=== PATIENT | female | born 1945 | race African-American/Black ===

== ENCOUNTER 2018-12-14 12:48 | Inpatient (IN) | payer MEDICARE, OTHER ==
[~2018-12-14] VITALS: Ht 162.6 cm; Wt 72.6 kg
[2018-12-14] MEDS ORDERED: Metoclopramide 10mg/2ml Inj IVP ONE (13:00)
--- NOTE | 2018-12-14 13:25 | NUR ---
ED Nurse Note: Pt NORARanda from [facility] due to complaints of abdominal pain since this morning. No nausea, vomiting or diarrhea. A + O x3. Able to follow verbal commands. SKin warm to touch. Complaining of 6/10 abdominal pain. Non radiating.
[2018-12-14 13:26] VITALS: BP 103/77
--- NOTE | 2018-12-14 13:29 | Emergency Room Report ---
History of Present Illness General Chief Complaint: Abdominal Pain Source: Patient, Family Member, Medical Record Present Illness HPI Patient is a 73-year-old female brought in by EMS after increased abdominal pain.Patient was noted to have prior history of CVA. Patient reportedly had prior history of chest discomfort. She had prior history of atrial fibrillation and is currently on anticoagulation. Patient is currently being treated with digoxin as well as flecainide. Patient was noted to have chronic atrial fibrillation. Patient was sent in from skilled nursing. Patient denies any current abdominal pain or chest pain.Patient was sent in by Dr. Livingston. Allergies: Coded Allergies: No Known Allergies (Unverified , 12/14/18) Patient History Past Medical History: see triage record Reviewed Nursing Documentation: PMH: Agreed; PSxH: Agreed Nursing Documentation-PMH Past Medical History: No History, Except For Hx Cardiac Problems: Yes - a-fib Hx Hypertension: Yes Hx Diabetes: Yes Hx Cerebrovascular Accident: Yes - hemiplegia affecting right nondom side Review of Systems All Other Systems: negative except mentioned in HPI Physical Exam Vital Signs Date Time Temp Pulse Resp B/P (MAP) Pulse Ox O2 Delivery O2 Flow Rate FiO2 12/14/18 12:48 98.4 66 16 107/79 97 Room Air Sp02 EP Interpretation: reviewed, normal General Appearance: normal inspection, well appearing, no apparent distress, alert, Chronically Ill Head: atraumatic ENT: normal ENT inspection, hearing grossly normal, normal voice Neck: normal inspection, full range of motion, supple, no bony tend Respiratory: normal inspection, lungs clear, normal breath sounds, no respiratory distress, no retraction, no wheezing Cardiovascular #1: regular rate, rhythm, no edema Gastrointestinal: normal inspection, normal bowel sounds, non tender, soft, no guarding, no hernia, other - post surgical changes Genitourinary: no CVA tenderness Musculoskeletal: normal inspection, back normal, normal range of motion Neurologic: normal inspection, alert, responsive, motor weakness - generalized weakness Psychiatric: normal inspection, judgement/insight normal, mood/affect normal Skin: normal inspection, normal color, no rash Medical Decision Making Diagnostic Impression: Primary Impression: Chest pain Additional Impressions: A-fib Warfarin-induced coagulopathy ER Course Patient presented for abdominal pain. Differential diagnoses included ischemic bowel, appendicitis, perforated viscus, abdominal aortic aneurysm, inferior myocardial infarction, viral gastroenteritis among others. Because of complexity of patient's case laboratory testing and imaging studies were ordered. EKG interpreted by me showed atrial paced rhythm without acute ST or T wave changes. Patient was noted to have elevated INR. Patient's initial troponin was noted to be negative. CT of abdomen pelvis read by radiology showed mild rectal distention by feces prominent left upper quadrant small bowel loops without evident obstruction. Patient was discussed with Dr. Sosa for further evaluation of chest and abdominal pain. Patient denies any current pain. Labs Test 12/14/18 13:10 12/14/18 14:25 White Blood Count 7.6 K/UL (4.8-10.8) Red Blood Count 5.58 M/UL (4.20-5.40) Hemoglobin 15.9 G/DL (12.0-16.0) Hematocrit 48.2 % (37.0-47.0) Mean Corpuscular Volume 86 FL (80-99) Mean Corpuscular Hemoglobin 28.6 PG (27.0-31.0) Mean Corpuscular Hemoglobin Concent 33.1 G/DL (32.0-36.0) Red Cell Distribution Width 12.4 % (11.6-14.8) Platelet Count 208 K/UL (150-450) Mean Platelet Volume 7.8 FL (6.5-10.1) Neutrophils (%) (Auto) 52.4 % (45.0-75.0) Lymphocytes (%) (Auto) 39.4 % (20.0-45.0) Monocytes (%) (Auto) 6.0 % (1.0-10.0) Eosinophils (%) (Auto) 1.2 % (0.0-3.0) Basophils (%) (Auto) 1.0 % (0.0-2.0) Prothrombin Time 28.5 SEC (9.30-11.50) Prothromb Time International Ratio 2.9 (0.9-1.1) Activated Partial Thromboplast Time 36 SEC (23-33) Sodium Level 136 MMOL/L (136-145) Potassium Level 4.6 MMOL/L (3.5-5.1) Chloride Level 101 MMOL/L (98-107) Carbon Dioxide Level 25 MMOL/L (21-32) Anion Gap 10 mmol/L (5-15) Blood Urea Nitrogen 13 mg/dL (7-18) Creatinine 0.8 MG/DL (0.55-1.30) Estimat Glomerular Filtration Rate mL/min (>60) Glucose Level 217 MG/DL (74-106) Calcium Level 9.2 MG/DL (8.5-10.1) Total Bilirubin 0.4 MG/DL (0.2-1.0) Aspartate Amino Transf (AST/SGOT) 25 U/L (15-37) Alanine Aminotransferase (ALT/SGPT) 41 U/L (12-78) Alkaline Phosphatase 190 U/L (46-116) Troponin I 0.000 ng/mL (0.000-0.056) Total Protein 7.3 G/DL (6.4-8.2) Albumin 3.1 G/DL (3.4-5.0) Globulin 4.2 g/dL Albumin/Globulin Ratio 0.7 (1.0-2.7) Lipase 214 U/L (73-393) Urine Color Yellow Urine Appearance Cloudy Urine pH 5 (4.5-8.0) Urine Specific [place] 1.015 (1.005-1.035) Urine Protein 2+ (NEGATIVE) Urine Glucose (UA) Negative (NEGATIVE) Urine Ketones Negative (NEGATIVE) Urine Blood 3+ (NEGATIVE) Urine Nitrite Positive (NEGATIVE) Urine Bilirubin Negative (NEGATIVE) Urine Urobilinogen 1 MG/DL (0.0-1.0) Urine Leukocyte Esterase 3+ (NEGATIVE) Urine HCG, Qualitative Negative (NEGATIVE) Last Vital Signs Date Time Temp Pulse Resp B/P (MAP) Pulse Ox O2 Delivery O2 Flow Rate FiO2 12/14/18 12:48 98.4 66 16 107/79 97 Room Air Status: unchanged Disposition: ADMITTED INPATIENT Condition: Serious Referrals: NON PHYSICIAN (PCP) Albino Rosado MD Dec 14, 2018 13:29
[2018-12-14 13:41] LABS: EOSINOPHILS % (AUTO) 1.2 % (0.0-3.0); HEMATOCRIT 48.2 % (37.0-47.0); HEMOGLOBIN 15.9 G/DL (12.0-16.0); LYMPHOCYTES % (AUTO) 39.4 % (20.0-45.0); MEAN CORPUSCULAR VOLUME 86 FL (80-99); NEUTROPHILS % (AUTO) 52.4 % (45.0-75.0); PLATELET COUNT 208 K/UL (150-450); RED BLOOD COUNT 5.58 M/UL (4.20-5.40); RED CELL DISTRIBUTION WIDTH 12.4 % (11.6-14.8); WHITE BLOOD COUNT 7.6 K/UL (4.8-10.8)
[2018-12-14 13:51] LABS: ANION GAP 10 mmol/L (5-15); BLOOD UREA NITROGEN 13 mg/dL (7-18); CALCIUM 9.2 MG/DL (8.5-10.1); CARBON DIOXIDE 25 MMOL/L (21-32); CHLORIDE 101 MMOL/L (98-107); CREATININE 0.8 MG/DL (0.55-1.30); INR 2.9 (0.9-1.1); POTASSIUM 4.6 MMOL/L (3.5-5.1); SODIUM 136 MMOL/L (136-145)
[2018-12-14 13:55] LABS: ALANINE AMINOTRANSFERASE 41 U/L (12-78); ALBUMIN 3.1 G/DL (3.4-5.0); ALBUMIN/GLOBULIN RATIO 0.7 (1.0-2.7); ALKALINE PHOSPHATASE 190 U/L (46-116); ASPARTATE AMINO TRANSFERASE 25 U/L (15-37); BILIRUBIN,TOTAL 0.4 MG/DL (0.2-1.0)
--- NOTE | 2018-12-14 14:05 | NUR ---
ED Nurse Note: Pt back from CT.
--- NOTE | 2018-12-14 14:30 | NUR ---
ED Nurse Note: Urine has been collected and sent to lab.
--- NOTE | 2018-12-14 14:31 | Diagnostic Imaging Report ---
Indication: Abdominal pain Technique: Spiral acquisitions obtained through the abdomen and pelvis. No oral contrast utilized, per emergency room physician request No IV contrast utilized, per referring physician request.. Multiplanar reconstructions were generated. Total dose length product 696 mGycm. CTDIvol(s) 13 mGy. Dose reduction achieved using automated exposure control Comparison: None Findings: Lack of enteric contrast limits assessment of the GI tract. There is mild rectal distention by feces. No evidence of diverticulosis or diverticulitis. The appendix is normal. No small bowel distention. Left upper quadrant small bowel loops are mildly prominent in caliber, but no definite transition point demonstrated. No free or loculated intraperitoneal gas. There is trace fluid in the pelvis. The distal esophagus, stomach, duodenum are unremarkable. Lack of IV contrast limits assessment of the solid organs. Gallbladder, bile ducts, liver, pancreas, spleen, adrenals, kidneys are all unremarkable. No retroperitoneal or mesenteric mass or adenopathy. No pelvic mass or adenopathy. A calcification within the uterus probably represents an old degenerated fibroid. There is a right hip arthroplasty prosthesis. This throws off streak artifact which may obscure pathology in the pelvis. The included lung bases demonstrate atelectasis or scarring bilaterally. Pacemaker wires are seen within the right heart. The bones demonstrate degenerative spondylosis changes. Impression: Limited assessment of the GI tract, due to lack of enteric contrast administration Mild rectal distention by feces, could indicate mild rectal fecal impaction. Trace free pelvic fluid. Significance uncertain but not physiologic in a postmenopausal female Mildly prominent left upper quadrant small bowel loops, nonspecific, could indicate mild ileus Other findings as noted, including right hip arthroplasty, old degenerated uterine fibroid, bilateral basilar pulmonary atelectasis or scarring, pacemaker, degenerative spondylosis The CT scanner at [facility] is accredited by the [employer] and the scans are performed using protocols designed to limit radiation exposure to as low as reasonably achievable to attain images of sufficient resolution adequate for diagnostic evaluation.
[2018-12-14 14:47] LABS: APPEARANCE,URINE CLOUDY; BILIRUBIN, URINE NEGATIVE (NEGATIVE); GLUCOSE, URINE (UA) NEGATIVE (NEGATIVE); KETONES,URINE NEGATIVE (NEGATIVE); LEUKOCYTE ESTERASE ,URINE 3+ (NEGATIVE); NITRITE,URINE POSITIVE (NEGATIVE); PH,URINE 5 (4.5-8.0); PROTEIN,URINE 2+ (NEGATIVE); UROBILINOGEN,URINE 1 MG/DL (0.0-1.0)
[2018-12-14 14:48] LABS: COLOR,URINE YELLOW
[2018-12-14 14:59] VITALS: BP 104/54
[2018-12-14] MEDS ORDERED: cefTRIAXone 1 GM in NS 55 ML IVPB ONE (15:15)
--- NOTE | 2018-12-14 15:25 | NUR ---
ED Nurse Note: Daughter Ro
[2018-12-14] MEDS ORDERED: LISINOPRIL20 MG ORAL (15:33)
[2018-12-14] MEDS ORDERED: TRAMADOL HCL50 MG ORAL (15:33)
[2018-12-14] MEDS ORDERED: FLECAINIDE ACE100 MG ORAL (15:33)
[2018-12-14] MEDS ORDERED: CRESTOR20 MG ORAL (15:33)
[2018-12-14] MEDS ORDERED: DIGOXIN250 MCG/1 IV (15:33)
[2018-12-14] MEDS ORDERED: CARDIZEM60 MG ORAL (15:33)
[2018-12-14] MEDS ORDERED: MIRALAX17 G2 ORAL (15:33)
[2018-12-14] MEDS ORDERED: LOPRESSOR5 MG/5 ML IV (15:33)
[2018-12-14] MEDS ORDERED: SENSIPAR30 MG ORAL (15:33)
--- NOTE | 2018-12-14 15:53 | History and Physical ---
History of Present Illness General Date patient seen: Dec 14, 2018 Time patient seen: 15:00 Reason for Hospitalization: Abdominal Pain Present Illness HPI 73 year old woman, fdc resident, comes from [facility] for evaluation of right sided chest pain and lower abdominal pain. She is a patient of Dr. Luis Abdalla. Accompanied by her grandson. 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 She describes right sided chest pain, under the right breast, 7/10, sharp and non-radiating. Resolved spontaneously. Denies associated dyspnea or palpitations She also reports lower abdominal discomfort, moderate in intensity, non radiating. No fever or chills. In ED she had negative first trop, UA with pyuria Past Medical History: CAD, atrial fibrillation s/p PPM, HTN, hyperlipidemia, history of CVA, DM2, dysphagia Social History: No alcohol or tobacco Family History: No premature CAD Allergies: Coded Allergies: No Known Allergies (Unverified , 12/14/18) Medication History Scheduled Cinacalcet* (Sensipar*), 30 MG ORAL DAILY, (Reported) Digoxin* (Digoxin*), 250 MCG IV DAILY, (Reported) Diltiazem Hcl* (Cardizem*), 60 MG ORAL EVERY 6 HOURS, (Reported) Lisinopril (Lisinopril*), 20 MG ORAL DAILY, (Reported) Polyethylene Glycol 3350* (Miralax*), 17 GM ORAL DAILY, (Reported) Rosuvastatin Calcium* (Crestor*), 20 MG ORAL DAILY, (Reported) Scheduled PRN Tramadol Hcl* (Ultram*), 50 MG ORAL Q6H PRN for For Pain, (Reported) Miscellaneous Medications Flecainide Acetate (Flecainide Acetate*), 100 MG ORAL, (Reported) Metoprolol Tartrate* (Lopressor*), 5 MG IV, (Reported) Patient History Healthcare decision maker Resuscitation status Advanced Directive on File Review of Systems Constitutional: Denies: chills, fever Eye: Denies: eye pain Respiratory: Denies: cough, shortness of breath Cardiovascular: Reports: chest pain; Denies: edema, palpitations Gastrointestinal: Reports: abdominal pain; Denies: constipation, diarrhea Musculoskeletal: Denies: back pain Neurological: Denies: headache Physical Exam General Appearance: no apparent distress, alert HEENT: normocephalic, atraumatic, anicteric Neck: normal alignment, supple, abnormal alignment Respiratory/Chest: chest wall non-tender, lungs clear, normal breath sounds Cardiovascular/Chest: normal peripheral pulses, normal rate Abdomen: normal bowel sounds, non tender Neurologic: senior director marketing II-XII grossly normal, alert, oriented x 3, responsive Last 24 Hour Vital Signs Date Time Temp Pulse Resp B/P (MAP) Pulse Ox O2 Delivery O2 Flow Rate FiO2 12/14/18 14:59 98.4 60 21 104/54 100 Room Air 100 12/14/18 13:26 60 19 Room Air 100 12/14/18 13:26 98.4 60 19 103/77 100 Room Air 12/14/18 12:48 98.4 66 16 107/79 97 Room Air Laboratory Tests Test 12/14/18 13:10 12/14/18 14:25 White Blood Count 7.6 K/UL (4.8-10.8) Red Blood Count 5.58 M/UL (4.20-5.40) H Hemoglobin 15.9 G/DL (12.0-16.0) Hematocrit 48.2 % (37.0-47.0) H Mean Corpuscular Volume 86 FL (80-99) Mean Corpuscular Hemoglobin 28.6 PG (27.0-31.0) Mean Corpuscular Hemoglobin Concent 33.1 G/DL (32.0-36.0) Red Cell Distribution Width 12.4 % (11.6-14.8) Platelet Count 208 K/UL (150-450) Mean Platelet Volume 7.8 FL (6.5-10.1) Neutrophils (%) (Auto) 52.4 % (45.0-75.0) Lymphocytes (%) (Auto) 39.4 % (20.0-45.0) Monocytes (%) (Auto) 6.0 % (1.0-10.0) Eosinophils (%) (Auto) 1.2 % (0.0-3.0) Basophils (%) (Auto) 1.0 % (0.0-2.0) Prothrombin Time 28.5 SEC (9.30-11.50) H Prothromb Time International Ratio 2.9 (0.9-1.1) H Activated Partial Thromboplast Time 36 SEC (23-33) H Sodium Level 136 MMOL/L (136-145) Potassium Level 4.6 MMOL/L (3.5-5.1) Chloride Level 101 MMOL/L (98-107) Carbon Dioxide Level 25 MMOL/L (21-32) Anion Gap 10 mmol/L (5-15) Blood Urea Nitrogen 13 mg/dL (7-18) Creatinine 0.8 MG/DL (0.55-1.30) Estimat Glomerular Filtration Rate mL/min (>60) Glucose Level 217 MG/DL (74-106) H Calcium Level 9.2 MG/DL (8.5-10.1) Total Bilirubin 0.4 MG/DL (0.2-1.0) Aspartate Amino Transf (AST/SGOT) 25 U/L (15-37) Alanine Aminotransferase (ALT/SGPT) 41 U/L (12-78) Alkaline Phosphatase 190 U/L (46-116) H Troponin I 0.000 ng/mL (0.000-0.056) Total Protein 7.3 G/DL (6.4-8.2) Albumin 3.1 G/DL (3.4-5.0) L Globulin 4.2 g/dL Albumin/Globulin Ratio 0.7 (1.0-2.7) L Lipase 214 U/L (73-393) Urine Color Yellow Urine Appearance Cloudy Urine pH 5 (4.5-8.0) Urine Specific [place] 1.015 (1.005-1.035) Urine Protein 2+ (NEGATIVE) H Urine Glucose (UA) Negative (NEGATIVE) Urine Ketones Negative (NEGATIVE) Urine Blood 3+ (NEGATIVE) H Urine Nitrite Positive (NEGATIVE) H Urine Bilirubin Negative (NEGATIVE) Urine Urobilinogen 1 MG/DL (0.0-1.0) H Urine Leukocyte Esterase 3+ (NEGATIVE) H Urine RBC 10-15 /HPF (0 - 2) H Urine WBC 40-60 /HPF (0 - 2) H Urine Squamous Epithelial Cells Occasional /LPF Urine Bacteria Many /HPF (NONE) H Urine HCG, Qualitative Negative (NEGATIVE) Height (Feet): 5 Height (Inches): 4.00 Weight (Pounds): 160 Medications Current Medications Medications (Trade) Dose Ordered Sig/Ellie Route PRN Reason Start Time Stop Time Status Last Admin Dose Admin Acetaminophen (Tylenol) 650 mg Q4H PRN ORAL Mild Pain (Pain Scale 1-3) 2/13/19 15:30 01/13/19 15:29 Aspirin (ASA) 81 mg DAILY ORAL 12/15/18 09:00 01/14/19 08:59 Ceftriaxone Sodium 1 gm/ Sodium Chloride 55 ml @ 110 mls/hr ONCE ONCE IVPB 12/14/18 15:15 12/14/18 15:44 12/14/18 15:14 Ceftriaxone Sodium 1 gm/ Sodium Chloride 55 ml @ 110 mls/hr Q24HRS IVPB 12/15/18 15:30 12/22/18 15:29 UNV Dextrose (Dextrose 50%) 25 ml Q30M PRN IV Hypoglycemia 12/14/18 15:30 01/13/19 15:29 Dextrose (Dextrose 50%) 50 ml Q30M PRN IV Hypoglycemia 12/14/18 15:30 01/13/19 15:29 Digoxin (Lanoxin) 0.25 mg DAILY ORAL 12/15/18 09:00 01/14/19 08:59 UNV Diltiazem HCl (Cardizem) 90 mg TID ORAL 12/14/18 18:00 01/13/19 17:59 Docusate Sodium (Colace) 100 mg EVERY 12 HOURS ORAL 12/14/18 21:00 01/13/19 20:59 Flecainide Acetate (Tambocor) 50 mg DAILY ORAL 12/15/18 09:00 01/14/19 08:59 UNV Insulin Aspart (NovoLOG) BEFORE MEALS AND HS SUBQ 12/14/18 16:30 01/13/19 16:29 UNV Metoprolol Tartrate (Lopressor) 100 mg EVERY 12 HOURS ORAL 12/14/18 21:00 01/13/19 20:59 Ondansetron HCl (Zofran) 4 mg Q6H PRN IVP Nausea & Vomiting 12/14/18 15:30 01/13/19 15:29 Assessment/Plan Problem List: (1) UTI (urinary tract infection) ICD Codes: N39.0 - Urinary tract infection, site not specified SNOMED: 04093217 (2) Chest pain ICD Codes: R07.9 - Chest pain, unspecified SNOMED: 48081213 (3) A-fib ICD Codes: I48.91 - Unspecified atrial fibrillation SNOMED: 07354005 Assessment/Plan #Right sided chest pain #history of CAD #atrial fibrillation, paced rhythm on EKG #history of HTN, dyslipidemia -admit to telemetry unit -check serial cardiac enzymes -continue ASA,statin, B-cinthia -continue digoxin, flecainide and diltiazem -Cardiology consulted #Abdominal pain #Pyuria #Suspected UTI -no sepsis at this time -start ceftriaxone -follow up urine culture #Type 2 DM -lispro SS -diabetic diet #history of CVA #Dysphagia #paraplegia -on ASA and statin -continue supportive care -dysphagia diet -skin check -pressure ulcer protocol VTE PPx on warfarin DNR I spent 70 minutes on this patient's case, and 35 minutes was dedicated to counseling and/or care coordination. Darci Flowers MD Dec 14, 2018 15:53
[2018-12-14] MEDS ORDERED: traMADol 50mg tab ORAL PRN (16:00)
[2018-12-14 17:22] VITALS: BP 116/62
--- NOTE | 2018-12-14 17:35 | NUR ---
ED Nurse Note: Gave telephone report to ABHAY Melchor. Awaiting for admission packet.
--- NOTE | 2018-12-14 18:01 | NUR ---
ED Nurse Note: Pt transferred up to tele unit. No acute distres noted. Left ER w/ al belongings.
--- NOTE | 2018-12-14 18:10 | NUR ---
NURSE NOTES: Report received from ABHAY Titus. Patient came in to the floor via gurney from ER. Patient in RA, denies any SOB or pain. Patient AOx3. jute bag clipper applied. Belongings checked signed and filed. IV patent, SL. Patient oriented to room and hospital rules. Bed on lowest position, brakes engaged, side rails upx2, alarm on. Call light within easy reach.
[2018-12-14] MEDS: dilTIAZem HCl 90mg tab ORAL SCH (18:37)
[2018-12-14] MEDS ORDERED: METOPROLOL TAR100 M1 ORAL (19:15)
[2018-12-14] MEDS ORDERED: DIGOXIN250 MCG ORAL (19:15)
[2018-12-14] MEDS ORDERED: MULTIVITAMINS1 EAC8 ORAL (19:18)
[2018-12-14] MEDS ORDERED: ASPIRIN81 MG ORAL (19:18)
[2018-12-14] MEDS ORDERED: VITAMIN D350000 UNIT PO (19:18)
[2018-12-14] MEDS ORDERED: ARTIFICIAL TEAR15 ML BOTH EYES (19:24)
[2018-12-14] MEDS ORDERED: LD2JL30 TOPIC (19:24)
[2018-12-14] MEDS ORDERED: LANTUS SOL100 UNIT/1 SUBQ (19:28)
[2018-12-14] MEDS ORDERED: HUMALOG KW200 UNIT/1 SQ (19:28)
--- NOTE | 2018-12-14 19:30 | NUR ---
NURSE NOTES: Received report from Freedom Diallo RN. Pt was admitted to at 1820. No DVT prophylaxis order yet. Called left message to Dr. Sosa, awaiting call back. Pt is resting in the bed w/o distress in RA, no pain at all at this time. Safety measures are applied with bed alarm on, bed in lowest position, side rails up x2, and breaks are engaged. Call light and side table are within reach. A-paced 60 bpm in the monitor. L. HANNAH 22G SL, asymptomatic. Family are at the bedside. Will follow plans of care. Addendum: 12/15/18 at 0000 by DEVORAH GUILLAUME RN called and ordered SCDs for DVT proplylaxis. Informed that Pt has hx of a-fib and Chest pain. Will carry out the order.
--- NOTE | 2018-12-14 19:42 | NUR ---
CASE MANAGEMENT: REVIEW 73/F BIBA FROM [facility] CC: ABD PAIN SI: CHEST PAIN . A-FIB T 97.5 HR 66 RR 19 BP 104/54 SAT 94% ROOM AIR TROPONIN I 0.000 IS: NS IVF BOLUS X1 REGLAN IV X1 CEFTRIAXONE IV X1 PATIENT ADMITTED TO TELEMETRY UNIT 12/14/2018 DCP: PATIENT IS FROM [facility]
[2018-12-14 20:00] VITALS: BP 120/75
[2018-12-14] MEDS: Docusate 100mg cap ORAL SCH (21:03)
[2018-12-14] MEDS: NovoLOG Insulin Flexpen SUBQ SCH (21:04)
--- NOTE | 2018-12-14 22:54 | NUR ---
NURSE NOTES: Called pharmacy for Insulin pen 3 times at 2030, at 2130, at 2220. Novolog is ready now in the med room. Will be administer it now. Addendum: 12/14/18 at 2257 by DEVORAH GUILLAUME RN Wrong patient.
[2018-12-15] VITALS: BP 149/87
--- NOTE | 2018-12-15 02:00 | NUR ---
NURSE NOTES: Plt was wet and had BM, and cleaned, dried. Pt was repositioned. pt tolerated well.
[2018-12-15 04:00] VITALS: BP 138/87
[2018-12-15] MEDS: NovoLOG Insulin Flexpen SUBQ SCH ×4 (06:46→21:00)
--- NOTE | 2018-12-15 07:00 | NUR ---
HAND-OFF: Report given to Neo Gomes RN.Stable condition.
[2018-12-15 08:00] VITALS: BP 128/68
--- NOTE | 2018-12-15 08:09 | NUR ---
NURSE NOTES: Pt in bed in low position, call light at bedside HoB in high fowlers, IV site patent and intact, pt Ox3 with some resistance to care but yet cooperative, follows commands, IV LT EJ patent and intact, pt bed bound, pt makes needs known, no s/s of distress or sob noted, pt denies pain. pt eating breakfast.
--- NOTE | 2018-12-15 08:37 | NUR ---
NURSE NOTES: Md Pleitez wants to down grade the pt to medsurg
[2018-12-15 08:53] LABS: BASOPHILS % (AUTO) 1.2 % (0.0-2.0); EOSINOPHILS % (AUTO) 1.2 % (0.0-3.0); HEMATOCRIT 41.5 % (37.0-47.0); HEMOGLOBIN 13.4 G/DL (12.0-16.0); LYMPHOCYTES % (AUTO) 38.7 % (20.0-45.0); MEAN CORPUSCULAR VOLUME 87 FL (80-99); MONOCYTES % (AUTO) 5.5 % (1.0-10.0); NEUTROPHILS % (AUTO) 53.5 % (45.0-75.0); PLATELET COUNT 166 K/UL (150-450); RED BLOOD COUNT 4.76 M/UL (4.20-5.40); RED CELL DISTRIBUTION WIDTH 12.4 % (11.6-14.8); WHITE BLOOD COUNT 7.7 K/UL (4.8-10.8)
[2018-12-15 08:59] LABS: ANION GAP 8 mmol/L (5-15); BLOOD UREA NITROGEN 13 mg/dL (7-18); CALCIUM 8.9 MG/DL (8.5-10.1); CARBON DIOXIDE 28 MMOL/L (21-32); CHLORIDE 101 MMOL/L (98-107); CREATININE 0.8 MG/DL (0.55-1.30); SODIUM 137 MMOL/L (136-145)
[2018-12-15] MEDS: dilTIAZem HCl 90mg tab ORAL SCH ×3 (09:30→18:44)
[2018-12-15] MEDS: Lisinopril 20mg tab ORAL SCH (09:30)
[2018-12-15] MEDS: Aspirin Baby 81mg ORAL SCH (09:31)
[2018-12-15] MEDS: Docusate 100mg cap ORAL SCH ×2 (09:31→21:00)
[2018-12-15] MEDS: Digoxin 0.125mg tab ORAL SCH (09:34)
[2018-12-15 12:00] VITALS: BP 139/87
[2018-12-15] MEDS ORDERED: Lexiscan 0.4mg/5ml syringe IV PRN (12:15)
--- NOTE | 2018-12-15 12:16 | Consultation ---
History of Present Illness General Date patient seen: Dec 15, 2018 Time patient seen: 12:11 Chief Complaint: Abdominal Pain Present Illness HPI 73 year old woman, [facility] resident, comes from [facility] for evaluation of right sided chest pain and lower abdominal pain. She is a patient of Dr. Luis Abdalla. Accompanied by her grandson. 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 She describes right sided chest pain, under the right breast, 7/10, sharp and non- radiating. Resolved spontaneously. Denies associated dyspnea or palpitations She also reports lower abdominal discomfort, moderate in intensity, non radiating. No fever or chills. In ED she had negative first trop, UA with pyuria. Past Medical History: CAD, atrial fibrillation s/p PPM, HTN, hyperlipidemia, history of CVA, DM2, dysphagia Allergies: Coded Allergies: No Known Allergies (Unverified , 12/14/18) Medication History Scheduled Aspirin* (Aspirin*), 81 MG ORAL DAILY, (Reported) Cholecalciferol (Vitamin D3) (Vitamin D3), 50,000 UNIT PO ONCE A WEEK, (Reported ) Cinacalcet* (Sensipar*), 30 MG ORAL DAILY, (Reported) Dextran 70/Hypromellose (Artificial Tears Eye Drops*), 1 DROP BOTH EYES BID, ( Reported) Digoxin* (Digoxin*), 0.25 MG ORAL DAILY, (Reported) Diltiazem Hcl* (Cardizem*), 90 MG ORAL TID, (Reported) Flecainide Acetate (Flecainide Acetate*), 50 MG ORAL DAILY, (Reported) Insulin Glargine (Lantus), 12 UNITS SUBQ BEDTIME, (Reported) Insulin Lispro (Humalog Kwikpen), 4 UNIT SQ AC, (Reported) Lidocaine HCL 2% Jelly* (Lidocaine Jelly 2%*), 5 % TOPIC DAILY, (Reported) Metoprolol Tartrate* (Metoprolol Tartrate*), 100 MG ORAL BID, (Reported) Multivitamin With Minerals (Multivitamins With Minerals*), 1 TAB ORAL DAILY, ( Reported) Polyethylene Glycol 3350* (Miralax*), 17 GM ORAL DAILY, (Reported) Rosuvastatin Calcium* (Crestor*), 20 MG ORAL QHS, (Reported) Tramadol Hcl* (Ultram*), 50 MG ORAL Q12HR, (Reported) Scheduled PRN Lisinopril (Lisinopril*), 20 MG ORAL DAILY PRN for For High Blood Pressure, ( Reported) Discontinued Medications Digoxin* (Digoxin*), 250 MCG IV DAILY, (Reported) Discontinued Reason: Prescription changed Metoprolol Tartrate* (Lopressor*), 5 MG IV, (Reported) Discontinued Reason: Prescription changed Patient History Healthcare decision maker Resuscitation status Do Not Resuscitate Advanced Directive on File Review of Systems Constitutional: Reports: no symptoms Eye: Reports: no symptoms ENT: Reports: no symptoms Respiratory: Reports: no symptoms Cardiovascular: Reports: chest pain, palpitations Gastrointestinal: Reports: no symptoms Genitourinary: Reports: no symptoms Musculoskeletal: Reports: no symptoms Skin: Reports: no symptoms Psychiatric: Reports: no symptoms Neurological: Reports: no symptoms Endocrine: Reports: no symptoms Hematologic/Lymphatic: Reports: no symptoms Physical Exam General Appearance: no apparent distress, alert Lines, tubes and drains: peripheral, central line HEENT: normocephalic, atraumatic, anicteric, mucous membranes moist, PERRL Neck: non-tender, normal alignment, supple Respiratory/Chest: lungs clear Cardiovascular/Chest: normal peripheral pulses, normal rate, regularly irregular Abdomen: normal bowel sounds, non tender Skin Exam: normal pigmentation, warm/dry Neurologic: fishing hand II-XII grossly normal, no motor/sensory deficits Last 24 Hour Vital Signs Date Time Temp Pulse Resp B/P (MAP) Pulse Ox O2 Delivery O2 Flow Rate FiO2 12/15/18 09:34 62 12/15/18 09:30 128/68 12/15/18 09:30 60 128/68 12/15/18 09:30 60 128/68 12/15/18 08:34 Room Air 12/15/18 08:00 97.3 0 20 128/68 (88) 99 12/15/18 07:49 60 12/15/18 04:00 97.7 60 18 138/87 (104) 97 12/15/18 03:20 60 12/15/18 00:00 97.2 60 18 149/87 (107) 98 12/14/18 23:35 60 12/14/18 21:10 60 120/75 12/14/18 21:00 Room Air 12/14/18 21:00 Room Air 12/14/18 20:00 60 12/14/18 20:00 97.7 60 18 120/75 (90) 95 12/14/18 18:37 62 117/69 12/14/18 17:59 97.5 60 18 110/60 96 Room Air 12/14/18 17:22 98.2 60 12 116/62 94 Room Air 100 12/14/18 14:59 98.4 60 21 104/54 100 Room Air 100 12/14/18 13:26 60 19 Room Air 100 12/14/18 13:26 98.4 60 19 103/77 100 Room Air 12/14/18 12:48 98.4 66 16 107/79 97 Room Air Intake and Output 12/14/18 12/15/18 19:00 07:00 Intake Total 550 ml Balance 550 ml Intake IV Total 550 ml # Voids 1 2 # Bowel Movements 1 Laboratory Tests Test 12/14/18 13:10 12/14/18 14:25 12/14/18 21:15 12/15/18 08:35 White Blood Count 7.6 K/UL (4.8-10.8) 7.7 K/UL (4.8-10.8) Red Blood Count 5.58 M/UL (4.20-5.40) H 4.76 M/UL (4.20-5.40) Hemoglobin 15.9 G/DL (12.0-16.0) 13.4 G/DL (12.0-16.0) Hematocrit 48.2 % (37.0-47.0) H 41.5 % (37.0-47.0) Mean Corpuscular Volume 86 FL (80-99) 87 FL (80-99) Mean Corpuscular Hemoglobin 28.6 PG (27.0-31.0) 28.1 PG (27.0-31.0) Mean Corpuscular Hemoglobin Concent 33.1 G/DL (32.0-36.0) 32.2 G/DL (32.0-36.0) Red Cell Distribution Width 12.4 % (11.6-14.8) 12.4 % (11.6-14.8) Platelet Count 208 K/UL (150-450) 166 K/UL (150-450) Mean Platelet Volume 7.8 FL (6.5-10.1) 7.9 FL (6.5-10.1) Neutrophils (%) (Auto) 52.4 % (45.0-75.0) 53.5 % (45.0-75.0) Lymphocytes (%) (Auto) 39.4 % (20.0-45.0) 38.7 % (20.0-45.0) Monocytes (%) (Auto) 6.0 % (1.0-10.0) 5.5 % (1.0-10.0) Eosinophils (%) (Auto) 1.2 % (0.0-3.0) 1.2 % (0.0-3.0) Basophils (%) (Auto) 1.0 % (0.0-2.0) 1.2 % (0.0-2.0) Prothrombin Time 28.5 SEC (9.30-11.50) H 10.6 SEC (9.30-11.50) Prothromb Time International Ratio 2.9 (0.9-1.1) H 1.0 (0.9-1.1) Activated Partial Thromboplast Time 36 SEC (23-33) H Sodium Level 136 MMOL/L (136-145) 137 MMOL/L (136-145) Potassium Level 4.6 MMOL/L (3.5-5.1) 4.0 MMOL/L (3.5-5.1) Chloride Level 101 MMOL/L (98-107) 101 MMOL/L (98-107) Carbon Dioxide Level 25 MMOL/L (21-32) 28 MMOL/L (21-32) Anion Gap 10 mmol/L (5-15) 8 mmol/L (5-15) Blood Urea Nitrogen 13 mg/dL (7-18) 13 mg/dL (7-18) Creatinine 0.8 MG/DL (0.55-1.30) 0.8 MG/DL (0.55-1.30) Estimat Glomerular Filtration Rate mL/min (>60) mL/min (>60) Glucose Level 217 MG/DL (74-106) H 327 MG/DL (74-106) #H Calcium Level 9.2 MG/DL (8.5-10.1) 8.9 MG/DL (8.5-10.1) Total Bilirubin 0.4 MG/DL (0.2-1.0) Aspartate Amino Transf (AST/SGOT) 25 U/L (15-37) Alanine Aminotransferase (ALT/SGPT) 41 U/L (12-78) Alkaline Phosphatase 190 U/L (46-116) H Troponin I 0.000 ng/mL (0.000-0.056) 0.000 ng/mL (0.000-0.056) Total Protein 7.3 G/DL (6.4-8.2) Albumin 3.1 G/DL (3.4-5.0) L Globulin 4.2 g/dL Albumin/Globulin Ratio 0.7 (1.0-2.7) L Lipase 214 U/L (73-393) Urine Color Yellow Urine Appearance Cloudy Urine pH 5 (4.5-8.0) Urine Specific Kyle 1.015 (1.005-1.035) Urine Protein 2+ (NEGATIVE) H Urine Glucose (UA) Negative (NEGATIVE) Urine Ketones Negative (NEGATIVE) Urine Blood 3+ (NEGATIVE) H Urine Nitrite Positive (NEGATIVE) H Urine Bilirubin Negative (NEGATIVE) Urine Urobilinogen 1 MG/DL (0.0-1.0) H Urine Leukocyte Esterase 3+ (NEGATIVE) H Urine RBC 10-15 /HPF (0 - 2) H Urine WBC 40-60 /HPF (0 - 2) H Urine Squamous Epithelial Cells Occasional /LPF Urine Bacteria Many /HPF (NONE) H Urine HCG, Qualitative Negative (NEGATIVE) Height (Feet): 5 Height (Inches): 4.00 Weight (Pounds): 160 Medications Current Medications Medications (Trade) Dose Ordered Sig/Ellie Route PRN Reason Start Time Stop Time Status Last Admin Dose Admin Acetaminophen (Tylenol) 650 mg Q4H PRN ORAL Mild Pain (Pain Scale 1-3) 12/14/18 15:30 01/13/19 15:29 Aspirin (ASA) 81 mg DAILY ORAL 12/15/18 09:00 01/14/19 08:59 12/15/18 09:31 Atorvastatin Calcium (Lipitor) 10 mg DAILY ORAL 12/15/18 09:00 01/14/19 08:59 12/15/18 09:31 Ceftriaxone Sodium 1 gm/ Sodium Chloride 55 ml @ 110 mls/hr Q24HRS IVPB 12/15/18 15:00 12/22/18 14:59 Dextrose (Dextrose 50%) 25 ml Q30M PRN IV Hypoglycemia 12/14/18 15:30 01/13/19 15:29 Dextrose (Dextrose 50%) 50 ml Q30M PRN IV Hypoglycemia 12/14/18 15:30 01/13/19 15:29 Digoxin (Lanoxin) 0.25 mg DAILY ORAL 12/15/18 09:00 01/14/19 08:59 12/15/18 09:34 Diltiazem HCl (Cardizem) 90 mg TID ORAL 12/14/18 18:00 01/13/19 17:59 12/14/18 18:37 Docusate Sodium (Colace) 100 mg EVERY 12 HOURS ORAL 12/14/18 21:00 01/13/19 20:59 12/15/18 09:31 Flecainide Acetate (Tambocor) 50 mg DAILY ORAL 12/15/18 09:00 01/14/19 08:59 12/15/18 09:31 Insulin Aspart (NovoLOG) BEFORE MEALS AND HS SUBQ 12/14/18 21:00 01/13/19 20:59 12/15/18 11:47 Lisinopril (Prinivil) 20 mg DAILY ORAL 12/15/18 09:00 01/14/19 08:59 12/15/18 09:30 Metoprolol Tartrate (Lopressor) 100 mg EVERY 12 HOURS ORAL 12/14/18 21:00 01/13/19 20:59 12/14/18 21:10 Ondansetron HCl (Zofran) 4 mg Q6H PRN IVP Nausea & Vomiting 12/14/18 15:30 01/13/19 15:29 Tramadol HCl (Ultram) 50 mg Q6H PRN ORAL For Pain 12/14/18 16:00 12/21/18 15:59 Assessment/Plan Status: stable Assessment/Plan Assessment/Plan Problem List: (1) UTI (urinary tract infection) (2) Chest pain (3) A-fib (4) HTN (5) HLD (6) CAD -Aspirin -Statin -nitro -Serial EKG/Troponin -Cardiolite Stress test in AM -Continue Digoxin/felcainide/cardizem for AFIB -Empiric Rocephin -Lisinopril for hypertension Julio Donnelly MD Dec 15, 2018 12:16
--- NOTE | 2018-12-15 12:39 | NUR ---
NURSE NOTES: per dr vigil keep patient in tele.
--- NOTE | 2018-12-15 14:54 | General Progress Note ---
Assessment/Plan Problem List: (1) UTI (urinary tract infection) ICD Codes: N39.0 - Urinary tract infection, site not specified SNOMED: 46355127 (2) Chest pain ICD Codes: R07.9 - Chest pain, unspecified SNOMED: 78452661 (3) A-fib ICD Codes: I48.91 - Unspecified atrial fibrillation SNOMED: 61603180 Assessment/Plan #Right sided chest pain #history of CAD #atrial fibrillation, paced rhythm on EKG #history of HTN, dyslipidemia -continue telemetry monitoring -serial trops negative -continue ASA,statin, B-cinthia -continue digoxin, flecainide and diltiazem -Cardiology consult appreciated, stress testing ordered #Abdominal pain #Pyuria #GNR UTI -no sepsis at this time -continue ceftriaxone -follow up final urine culture #Type 2 DM -lispro SS -diabetic diet #history of CVA #Dysphagia #paraplegia -on ASA and statin -continue supportive care -dysphagia diet -skin check -pressure ulcer protocol VTE PPx DNR Subjective Date patient seen: Dec 15, 2018 Time patient seen: 11:35 ROS Limited/Unobtainable: No Constitutional: Denies: chills, fever HEENT: Denies: blurred vision Cardiovascular: Denies: chest pain, edema Respiratory: Denies: cough, orthopnea, shortness of breath, SOB at rest Gastrointestinal/Abdominal: Denies: abdomen distended, abdominal pain Allergies: Coded Allergies: No Known Allergies (Unverified , 12/14/18) Subjective Medicine follow up for chest pain and UTI. She feels better today. No further pain overnight. Objective Last 24 Hour Vital Signs Date Time Temp Pulse Resp B/P (MAP) Pulse Ox O2 Delivery O2 Flow Rate FiO2 12/15/18 13:00 60 139/87 12/15/18 12:00 97.2 60 18 139/87 (104) 99 12/15/18 09:34 62 12/15/18 09:30 128/68 12/15/18 09:30 60 128/68 12/15/18 09:30 60 128/68 12/15/18 08:34 Room Air 12/15/18 08:00 97.3 0 20 128/68 (88) 99 12/15/18 07:49 60 12/15/18 04:00 97.7 60 18 138/87 (104) 97 2/14/19 03:20 60 12/15/18 00:00 97.2 60 18 149/87 (107) 98 12/14/18 23:35 60 12/14/18 21:10 60 120/75 12/14/18 21:00 Room Air 12/14/18 21:00 Room Air 12/14/18 20:00 60 12/14/18 20:00 97.7 60 18 120/75 (90) 95 12/14/18 18:37 62 117/69 12/14/18 17:59 97.5 60 18 110/60 96 Room Air 12/14/18 17:22 98.2 60 12 116/62 94 Room Air 100 12/14/18 14:59 98.4 60 21 104/54 100 Room Air 100 Intake and Output 12/14/18 12/15/18 19:00 07:00 Intake Total 550 ml Balance 550 ml Intake IV Total 550 ml # Voids 1 2 # Bowel Movements 1 Laboratory Tests 12/14/18 21:15: Troponin I 0.000 12/15/18 08:35: White Blood Count 7.7, Red Blood Count 4.76, Hemoglobin 13.4, Hematocrit 41.5, Mean Corpuscular Volume 87, Mean Corpuscular Hemoglobin 28.1, Mean Corpuscular Hemoglobin Concent 32.2, Red Cell Distribution Width 12.4, Platelet Count 166, Mean Platelet Volume 7.9, Neutrophils (%) (Auto) 53.5, Lymphocytes (%) (Auto) 38.7, Monocytes (%) (Auto) 5.5, Eosinophils (%) (Auto) 1.2, Basophils (%) (Auto ) 1.2, Prothrombin Time 10.6, Prothromb Time International Ratio 1.0, Sodium Level 137, Potassium Level 4.0, Chloride Level 101, Carbon Dioxide Level 28, Anion Gap 8, Blood Urea Nitrogen 13, Creatinine 0.8, Estimat Glomerular Filtration Rate , Glucose Level 327#H, Calcium Level 8.9 Height (Feet): 5 Height (Inches): 4.00 Weight (Pounds): 160 General Appearance: no apparent distress, alert Neck: non-tender, normal alignment Cardiovascular: normal peripheral pulses, normal rate, regular rhythm Respiratory/Chest: chest wall non-tender, lungs clear, normal breath sounds, no respiratory distress Abdomen: normal bowel sounds, non tender, soft, no organomegaly, no mass Extremities: non-tender Neurologic: under sheriff II-XII grossly normal, no motor/sensory deficits Darci Flowers MD Dec 15, 2018 14:54
[2018-12-15] MEDS: cefTRIAXone 1 GM in NS 55 ML IVPB SCH (15:55)
[2018-12-15 16:00] VITALS: BP 166/98
--- NOTE | 2018-12-15 19:00 | NUR ---
NURSE NOTES: Received report from Neo Gomes RN. Pt is sleeping in the bed w/o distress in RA, easily arousable by voice stimuli. Safety measures are applied w/ bed alarm on, bed in lowest position w/ side rails up x2, and breaks are engaged. Call light and side table are w/in reach. SR in the monitor. Will follow plans of care.
--- NOTE | 2018-12-15 19:29 | NUR ---
HAND-OFF: Report given to Emily Tyler Rn .
[2018-12-15 20:00] VITALS: BP 135/77
[2018-12-16] VITALS: BP 117/86
[2018-12-16 04:00] VITALS: BP 132/75
[2018-12-16] MEDS: NovoLOG Insulin Flexpen SUBQ SCH ×4 (06:23→21:51)
--- NOTE | 2018-12-16 07:30 | NUR ---
HAND-OFF: Report given to Neo Gomes RN. Stable condition.
--- NOTE | 2018-12-16 07:35 | NUR ---
NURSE NOTES: Pt in bed in low position, bed alarm on, call light at bedside, pt can be resistive to care, pt Ox3 makes needs known, pt NPO due to cardiac stress test, IV EJ left 22 locked, pt HOB in fowlers, pt resting in bed with eyes closed and breathing appears to be sleeping, no s/s of distress or sob noted. Order still in for transfer to [facility] after stress test.
[2018-12-16 08:00] VITALS: BP 126/75
[2018-12-16] MEDS: Digoxin 0.125mg tab ORAL SCH (09:00)
[2018-12-16] MEDS: dilTIAZem HCl 90mg tab ORAL SCH ×3 (09:00→18:00)
--- NOTE | 2018-12-16 09:05 | Cardiology Progress Note ---
Assessment/Plan Status: stable Assessment/Plan Assessment/Plan Status: stable Assessment/Plan Assessment/Plan Problem List: (1) UTI (urinary tract infection) (2) Chest pain (3) A-fib (4) HTN (5) HLD (6) CAD -Aspirin -Statin -nitro -Serial EKG/Troponin -Cardiolite Stress test in AM -Continue Digoxin/felcainide/cardizem for AFIB -Empiric Rocephin -Lisinopril for hypertension Subjective Cardiovascular: Reports: no symptoms Respiratory: Reports: no symptoms Gastrointestinal/Abdominal: Reports: no symptoms Genitourinary: Reports: no symptoms Subjective No acute events,no chest pain currently, for stress test this Am Objective Last 24 Hour Vital Signs Date Time Temp Pulse Resp B/P (MAP) Pulse Ox O2 Delivery O2 Flow Rate FiO2 12/16/18 08:06 Room Air 12/16/18 08:00 97.9 60 18 126/75 (92) 97 12/16/18 04:03 60 12/16/18 04:00 97.7 61 18 132/75 (94) 97 12/16/18 00:00 97.7 60 20 117/86 (96) 97 12/15/18 23:45 60 12/15/18 21:00 60 135/77 12/15/18 21:00 Room Air 12/15/18 20:00 97.2 60 18 135/77 (96) 99 12/15/18 19:02 60 12/15/18 18:44 61 166/98 12/15/18 16:00 98.2 61 18 166/98 (120) 98 12/15/18 15:34 60 12/15/18 13:00 60 139/87 12/15/18 12:00 97.2 60 18 139/87 (104) 99 12/15/18 09:34 62 12/15/18 09:30 128/68 12/15/18 09:30 60 128/68 12/15/18 09:30 60 128/68 General Appearance: no apparent distress, alert EENT: PERRL/EOMI, normal ENT inspection, TMs normal, pharynx normal Neck: non-tender, normal alignment, supple, normal inspection, no JVD Rhythm: NSR Cardiovascular: normal peripheral pulses, normal rate, regular rhythm Respiratory/Chest: chest wall non-tender, lungs clear, normal breath sounds Abdomen: normal bowel sounds, non tender, soft, no organomegaly Extremities: normal range of motion, non-tender Neurologic: wicker worker II-XII grossly normal Intake and Output 12/15/18 12/16/18 19:00 07:00 Intake Total 480 ml Balance 480 ml Intake Oral 480 ml # Voids 2 1 Microbiology Date/Time Source Procedure Growth Status 12/14/18 14:25 Urine,Clean Catch Urine Culture - Final Escherichia Coli Complete Julio Donnelly MD Dec 16, 2018 09:05
[2018-12-16] MEDS: Lisinopril 20mg tab ORAL SCH (09:24)
[2018-12-16] MEDS: Docusate 100mg cap ORAL SCH ×2 (09:24→20:52)
[2018-12-16] MEDS: Aspirin Baby 81mg ORAL SCH (09:24)
[2018-12-16 12:00] VITALS: BP 148/119
--- NOTE | 2018-12-16 12:37 | NUR ---
*-* DISCHARGE PLANNING *-* PATIENT HAS BEEN REFERRED BACK TO: [facility] P:[phone] F:[phone]
[2018-12-16] MEDS: cefTRIAXone 1 GM in NS 55 ML IVPB SCH (15:44)
[2018-12-16 16:00] VITALS: BP 115/55
--- NOTE | 2018-12-16 16:18 | Diagnostic Imaging Report ---
Indications: Chest pain Technique: Single day single isotope protocol utilized. Initially, resting images obtained using IV rsgitxuophyfux41.2 millicuries 99M technetium Myoview. Subsequently, patient underwent lexiscan stress testing. See cardiology report for details. During Lexiscan infusion, IV administration 30.5 mCi 99 M technetium Myoview. SPECT and planar images obtained. SPECT images gated to 8 phases of the cardiac cycle were also obtained, and reformatted into cine images for evaluation of ejection fraction. Comparison: none Findings: Per cardiology report, patient experienced no chest pain. Per cardiology report, resting EKG demonstrates atrial paced rhythm with nonsignificant ST-T wave changes. During the infusion, patient exhibited 1 to [address] depression in the inferolateral leads. Imaging demonstrates no definite fixed or reversible post stress perfusion defects. Normal cardiac chamber size.. Calculated post stress ejection fraction 75%. No focal wall motion abnormality demonstrated. Impression: Nonischemic clinical response to pharmacologic stress, per cardiology report Ischemic electrocardiographic response to pharmacologic stress, per cardiology report No imaging findings to suggest ischemia, at level of stress achieved. Calculated post stress ejection fraction greater than 70%
--- NOTE | 2018-12-16 16:57 | NUR ---
NURSE NOTES: Notified Andrzej and Pricilla regarding stress test results.
[2018-12-16] MEDS ORDERED: CEFUROXIME250 MG PO (17:02)
--- NOTE | 2018-12-16 17:08 | Discharge Summary ---
Discharge Summary Hospital Course Date of Admission Dec 14, 2018 at 14:34 Date of Discharge 12/16/18 Admitting Diagnosis CHEST PAIN ,ATRIAL FIB HPI Hina Livingston is a 73 year old female who was admitted on Dec 14, 2018 at 14 :34 for Chest Pain,Atrial Fibrillation Hospital Course #Right sided chest pain #history of CAD #atrial fibrillation, paced rhythm on EKG #history of HTN, dyslipidemia -admitted to telemetry -serial trops negative -stress test negative -continue ASA,statin, B-cinthia -continue digoxin, flecainide and diltiazem -Seen by Cardiology #Abdominal pain #Pyuria #E. Coli -treated with ceftriaxone in hospital -to continue Ceftin for 3 more days #Type 2 DM -lispro SS -diabetic diet #history of CVA #Dysphagia #paraplegia -on ASA and statin -continue supportive care Discharge back to SNF today Time spent in preparing discharge was 33 minutes Discharge Discharge Disposition Patient was discharged to Darci Flowers MD Dec 16, 2018 17:08
--- NOTE | 2018-12-16 17:17 | NUR ---
*-* DISCHARGE PLANNED *-* PATIENT IS TO RETURN UPON DISCHARGE TO: [facility] ROOM[facility]-A SKILLED T:[phone] FOR NURSE TO NURSE REPORT CALL [id number] TO SET UP TRANSPORTATION Addendum: 12/16/18 at 1731 by SELVIN MARIN CM *-* [facility] WILL CALL PLS CALL [phone] TO ACTIVATE TRANSFORATION S/W JOSE Gabriel
--- NOTE | 2018-12-16 17:20 | NUR ---
Social Service Note DC plan anticipated for tomorrow to [facility]. SW left a message for patient's dgt Ro Livingston [phone] informing her on impending plan.
--- NOTE | 2018-12-16 19:43 | NUR ---
HAND-OFF: Report given to Volodymyr Caban, pt discharging tomorrow.
[2018-12-16 20:00] VITALS: BP 164/72
--- NOTE | 2018-12-16 20:50 | Consultation ---
History of Present Illness General Chief Complaint: Abdominal Pain Present Illness Allergies: Coded Allergies: No Known Allergies (Unverified , 12/14/18) Medication History Scheduled Aspirin* (Aspirin*), 81 MG ORAL DAILY, (Reported) Cefuroxime Axetil* (Cefuroxime*), 250 MG PO Q12HR Cholecalciferol (Vitamin D3) (Vitamin D3), 50,000 UNIT PO ONCE A WEEK, (Reported ) Cinacalcet* (Sensipar*), 30 MG ORAL DAILY, (Reported) Dextran 70/Hypromellose (Artificial Tears Eye Drops*), 1 DROP BOTH EYES BID, ( Reported) Digoxin* (Digoxin*), 0.25 MG ORAL DAILY, (Reported) Diltiazem Hcl* (Cardizem*), 90 MG ORAL TID, (Reported) Flecainide Acetate (Flecainide Acetate*), 50 MG ORAL DAILY, (Reported) Insulin Glargine (Lantus), 12 UNITS SUBQ BEDTIME, (Reported) Insulin Lispro (Humalog Kwikpen), 4 UNIT SQ AC, (Reported) Lidocaine HCL 2% Jelly* (Lidocaine Jelly 2%*), 5 % TOPIC DAILY, (Reported) Metoprolol Tartrate* (Metoprolol Tartrate*), 100 MG ORAL BID, (Reported) Multivitamin With Minerals (Multivitamins With Minerals*), 1 TAB ORAL DAILY, ( Reported) Polyethylene Glycol 3350* (Miralax*), 17 GM ORAL DAILY, (Reported) Rosuvastatin Calcium* (Crestor*), 20 MG ORAL QHS, (Reported) Tramadol Hcl* (Ultram*), 50 MG ORAL Q12HR, (Reported) Scheduled PRN Lisinopril (Lisinopril*), 20 MG ORAL DAILY PRN for For High Blood Pressure, ( Reported) Discontinued Medications Digoxin* (Digoxin*), 250 MCG IV DAILY, (Reported) Discontinued Reason: Prescription changed Metoprolol Tartrate* (Lopressor*), 5 MG IV, (Reported) Discontinued Reason: Prescription changed Patient History Healthcare decision maker N Resuscitation status Do Not Resuscitate Advanced Directive on File No Physical Exam Last 24 Hour Vital Signs Date Time Temp Pulse Resp B/P (MAP) Pulse Ox O2 Delivery O2 Flow Rate FiO2 12/16/18 18:00 61 148/119 12/16/18 16:00 97.2 67 20 115/55 (75) 97 12/16/18 15:16 60 12/16/18 13:00 61 148/119 12/16/18 12:00 97.5 61 18 148/119 (129) 95 12/16/18 09:24 126/75 12/16/18 09:00 60 12/16/18 09:00 60 126/75 12/16/18 09:00 60 126/75 12/16/18 08:06 Room Air 12/16/18 08:00 97.9 60 18 126/75 (92) 97 12/16/18 07:51 60 12/16/18 04:03 60 12/16/18 04:00 97.7 61 18 132/75 (94) 97 12/16/18 00:00 97.7 60 20 117/86 (96) 97 12/15/18 23:45 60 12/15/18 21:00 60 135/77 12/15/18 21:00 Room Air Intake and Output 12/15/18 12/16/18 19:00 07:00 Intake Total 480 ml Balance 480 ml Intake Oral 480 ml # Voids 2 1 Height (Feet): 5 Height (Inches): 4.00 Weight (Pounds): 160 Medications Current Medications Medications (Trade) Dose Ordered Sig/Ellie Route PRN Reason Start Time Stop Time Status Last Admin Dose Admin Acetaminophen (Tylenol) 650 mg Q4H PRN ORAL Mild Pain (Pain Scale 1-3) 12/14/18 15:30 01/13/19 15:29 Aspirin (ASA) 81 mg DAILY ORAL 12/15/18 09:00 01/14/19 08:59 12/16/18 09:24 Atorvastatin Calcium (Lipitor) 10 mg DAILY ORAL 12/15/18 09:00 01/14/19 08:59 12/16/18 09:24 Ceftriaxone Sodium 1 gm/ Sodium Chloride 55 ml @ 110 mls/hr Q24HRS IVPB 12/15/18 15:00 12/22/18 14:59 12/16/18 15:44 Dextrose (Dextrose 50%) 25 ml Q30M PRN IV Hypoglycemia 12/14/18 15:30 01/13/19 15:29 Dextrose (Dextrose 50%) 50 ml Q30M PRN IV Hypoglycemia 12/14/18 15:30 01/13/19 15:29 Digoxin (Lanoxin) 0.25 mg DAILY ORAL 12/15/18 09:00 01/14/19 08:59 12/15/18 09:34 Diltiazem HCl (Cardizem) 90 mg TID ORAL 12/14/18 18:00 01/13/19 17:59 12/14/18 18:37 Docusate Sodium (Colace) 100 mg EVERY 12 HOURS ORAL 12/14/18 21:00 01/13/19 20:59 12/16/18 09:24 Flecainide Acetate (Tambocor) 50 mg DAILY ORAL 12/15/18 09:00 01/14/19 08:59 12/15/18 09:31 Insulin Aspart (NovoLOG) BEFORE MEALS AND HS SUBQ 12/14/18 21:00 01/13/19 20:59 12/16/18 16:55 Lisinopril (Prinivil) 20 mg DAILY ORAL 12/15/18 09:00 01/14/19 08:59 12/16/18 09:24 Metoprolol Tartrate (Lopressor) 100 mg EVERY 12 HOURS ORAL 12/14/18 21:00 01/13/19 20:59 12/15/18 21:00 Ondansetron HCl (Zofran) 4 mg Q6H PRN IVP Nausea & Vomiting 12/14/18 15:30 01/13/19 15:29 Tramadol HCl (Ultram) 50 mg Q6H PRN ORAL For Pain 12/14/18 16:00 12/21/18 15:59 Eryn Bueno MD Dec 16, 2018 20:50
[2018-12-17] VITALS: BP 173/95
[2018-12-17 04:00] VITALS: BP 141/110
[2018-12-17] MEDS: NovoLOG Insulin Flexpen SUBQ SCH ×2 (06:35→11:45)
--- NOTE | 2018-12-17 07:11 | NUR ---
NURSE NOTES: Report given to on coming RN
[2018-12-17 08:00] VITALS: BP 108/58
--- NOTE | 2018-12-17 08:30 | General Progress Note ---
Assessment/Plan Status: stable Assessment/Plan #Right sided chest pain #history of CAD #atrial fibrillation, paced rhythm on EKG #history of HTN, dyslipidemia -admitted to telemetry -serial trops negative -stress test negative -continue ASA,statin, B-cinthia -continue digoxin, flecainide and diltiazem -Seen by Cardiology #Abdominal pain #Pyuria #E. Coli -treated with ceftriaxone in hospital -to continue Ceftin for 3 more days #Type 2 DM -lispro SS -diabetic diet #history of CVA #Dysphagia #paraplegia -on ASA and statin -continue supportive care Discharge back to SNF today I have spent over 60 mins reviewing records and tests and communicating with other medical collections representative, during/following contact with patient. I spent 40 minutes on this patient's case, and 30 minutes were dedicated to counseling and/or care coordination. Discussed with patient/family, nursing staff, SW/CM, [] regarding clinical status, treatment course, and disposition planning. Time of note may not reflect time of encounter. Subjective Allergies: Coded Allergies: No Known Allergies (Unverified , 12/14/18) Subjective pending dc to snf stable today reviewed labs/meds/vitals no acute events overnight feels better today ROS: 14 point ROS reviewed and negative except per the above Objective Last 24 Hour Vital Signs Date Time Temp Pulse Resp B/P (MAP) Pulse Ox O2 Delivery O2 Flow Rate FiO2 12/17/18 04:00 60 12/17/18 04:00 97.5 61 20 141/110 (120) 96 12/17/18 00:00 60 12/17/18 00:00 97.5 60 18 173/95 (121) 98 12/16/18 21:00 Room Air 12/16/18 20:53 53 164/72 12/16/18 20:00 97.9 53 20 164/72 (102) 96 12/16/18 20:00 60 12/16/18 18:00 61 148/119 12/16/18 16:00 97.2 67 20 115/55 (75) 97 12/16/18 15:16 60 12/16/18 13:00 61 148/119 12/16/18 12:00 97.5 61 18 148/119 (129) 95 12/16/18 09:24 126/75 12/16/18 09:00 60 12/16/18 09:00 60 126/75 12/16/18 09:00 60 126/75 Intake and Output 12/16/18 12/17/18 19:00 07:00 Intake Total 120 ml Balance 120 ml Intake Oral 120 ml # Voids 2 3 Height (Feet): 5 Height (Inches): 4.00 Weight (Pounds): 160 Objective General Appearance: no apparent distress, alert Neck: non-tender, normal alignment Cardiovascular: normal peripheral pulses, normal rate, regular rhythm Respiratory/Chest: chest wall non-tender, lungs clear, normal breath sounds, no respiratory distress Abdomen: normal bowel sounds, non tender, soft, no organomegaly, no mass Extremities: non-tender Neurologic: head of english II-XII grossly normal, no motor/sensory deficits Sam Mckeon MD Dec 17, 2018 08:30
[2018-12-17] MEDS: dilTIAZem HCl 90mg tab ORAL SCH ×2 (09:00→11:46)
[2018-12-17] MEDS: Aspirin Baby 81mg ORAL SCH (09:00)
[2018-12-17] MEDS: Lisinopril 20mg tab ORAL SCH (09:00)
[2018-12-17] MEDS: Docusate 100mg cap ORAL SCH (09:01)
[2018-12-17] MEDS: Digoxin 0.125mg tab ORAL SCH (09:02)
[2018-12-17 11:56] VITALS: BP 110/62
--- NOTE | 2018-12-17 16:06 | NUR ---
NURSE NOTES: patient discharged with all her belonging as ordered. report given to receiving nurse Ray SANDOVAL. vital signs are stable.no c/o chest pain.
--- NOTE | 2018-12-17 16:20 | Cardiology Report ---
APPROVED REPORT EKG Measurement Heart [id number] MI 274P [id number] Atrial pacing Abnormal ECG
--- NOTE | 2018-12-17 22:00 | General Progress Note ---
Subjective Allergies: Coded Allergies: No Known Allergies (Unverified , 12/14/18) Objective Last 24 Hour Vital Signs Date Time Temp Pulse Resp B/P (MAP) Pulse Ox O2 Delivery O2 Flow Rate FiO2 12/17/18 11:56 98.0 74 18 110/62 (78) 96 12/17/18 11:46 74 110/62 12/17/18 09:10 Room Air 12/17/18 09:02 70 12/17/18 09:02 70 108/58 12/17/18 09:00 108/58 12/17/18 09:00 70 108/58 12/17/18 08:00 60 12/17/18 08:00 97.7 70 18 108/58 (75) 96 12/17/18 04:00 60 12/17/18 04:00 97.5 61 20 141/110 (120) 96 12/17/18 00:00 60 12/17/18 00:00 97.5 60 18 173/95 (121) 98 Intake and Output 12/16/18 12/17/18 19:00 07:00 Intake Total 120 ml Balance 120 ml Intake Oral 120 ml # Voids 2 3 Height (Feet): 5 Height (Inches): 4.00 Weight (Pounds): 160 Eryn Bueno MD Dec 17, 2018 22:00
== END 2018-12-17 16:00 | DRG 690 ==
LOC: EDBD 12:48 → EMR 13:10 → EDBEDREQ 14:29 → 2E 14:34 → EDBEDREQ 14:48 → ENRESERV 15:41 → EDBEDREQ 17:24 → 2E 18:57
DX: N39.0 Urinary tract infection, site not specified (principal); G82.20 Paraplegia, unspecified; Z86.73 Personal history of transient ischemic attack (TIA), and cerebral infarction without residual deficits; I48.91 Unspecified atrial fibrillation; Z79.01 Long term (current) use of anticoagulants; I10 Essential (primary) hypertension; R07.9 Chest pain, unspecified; E78.5 Hyperlipidemia, unspecified; E11.9 Type 2 diabetes mellitus without complications; R13.10 Dysphagia, unspecified; I25.10 Atherosclerotic heart disease of native coronary artery without angina pectoris; Z66 Do not resuscitate; B96.20 Unspecified Escherichia coli [E. coli] as the cause of diseases classified elsewhere
CPT/HCPCS: 36415; 74176; 78452; 80048; 80053; 81003; 81025; 82962; 83690; 84484; 85025; 85610; 85730; 87081; 87086; 87181; 93005; 93017; 96365; 96375; 99285; J1815; J2765; J2785

== ENCOUNTER 2019-12-12 16:50 | Emergency (ER) | payer MEDICARE, OTHER ==
[~2019-12-12] VITALS: Ht 167.6 cm; Wt 72.6 kg
[~2019-12-12 16:50] MED LIST: ARTIFICIAL TEAR15 ML BOTH EYES; ASPIRIN81 MG ORAL; CARDIZEM60 MG ORAL; CEFUROXIME250 MG PO; CRESTOR20 MG ORAL; DIGOXIN250 MCG ORAL; DIGOXIN250 MCG/1 IV; FLECAINIDE ACE100 MG ORAL; HUMALOG KW200 UNIT/1 SQ; LANTUS SOL100 UNIT/1 SUBQ; LD2JL30 TOPIC; LISINOPRIL20 MG ORAL; LOPRESSOR5 MG/5 ML IV; METOPROLOL TAR100 M1 ORAL; MIRALAX17 G2 ORAL; MULTIVITAMINS1 EAC8 ORAL; SENSIPAR30 MG ORAL; TRAMADOL HCL50 MG ORAL; VITAMIN D350000 UNIT PO
--- NOTE | 2019-12-12 17:13 | NUR ---
ED Nurse Note: Patient BIBA from SNF d/t 12/11 LUQ abdominal pain. Patient AxO x3-4, no s/s of acute distress. Patient on the travel ot.
[2019-12-12 17:17] VITALS: BP 164/81
[2019-12-12] MEDS ORDERED: Morphine Sulfate 2mg/ml Inj(IV/IM USE ONLY) IVP ONE (17:30)
[2019-12-12] MEDS ORDERED: Omnipaque-300 100ml vial INJ PRN (17:30)
[2019-12-12 18:01] LABS: EOSINOPHILS % (AUTO) 2.7 % (0.0-3.0); HEMOGLOBIN 12.6 G/DL (12.0-16.0); LYMPHOCYTES % (AUTO) 37.2 % (20.0-45.0); MEAN CORPUSCULAR VOLUME 88 FL (80-99); MONOCYTES % (AUTO) 5.4 % (1.0-10.0); NEUTROPHILS % (AUTO) 53.6 % (45.0-75.0); PLATELET COUNT 247 K/UL (150-450); RED BLOOD COUNT 4.53 M/UL (4.20-5.40); RED CELL DISTRIBUTION WIDTH 13.8 % (11.6-14.8); WHITE BLOOD COUNT 10.9 K/UL (4.8-10.8)
[2019-12-12 18:04] LABS: APPEARANCE,URINE CLEAR; BILIRUBIN, URINE NEGATIVE (NEGATIVE); COLOR,URINE PALE YELLOW; GLUCOSE, URINE (UA) NEGATIVE (NEGATIVE); KETONES,URINE NEGATIVE (NEGATIVE); LEUKOCYTE ESTERASE ,URINE NEGATIVE (NEGATIVE); NITRITE,URINE NEGATIVE (NEGATIVE); PH,URINE 7 (4.5-8.0); PROTEIN,URINE NEGATIVE (NEGATIVE); UROBILINOGEN,URINE NORMAL MG/DL (0.0-1.0)
[2019-12-12 18:26] LABS: ANION GAP 12 mmol/L (5-15); BLOOD UREA NITROGEN 20 mg/dL (7-18); CALCIUM 8.4 MG/DL (8.5-10.1); CARBON DIOXIDE 25 MMOL/L (21-32); CHLORIDE 102 MMOL/L (98-107); CREATININE 1.2 MG/DL (0.55-1.30); POTASSIUM 4.8 MMOL/L (3.5-5.1); SODIUM 139 MMOL/L (136-145)
[2019-12-12 18:30] LABS: ALANINE AMINOTRANSFERASE 33 U/L (12-78); ALBUMIN 2.7 G/DL (3.4-5.0); ALBUMIN/GLOBULIN RATIO 0.6 (1.0-2.7); ALKALINE PHOSPHATASE 207 U/L (46-116); ASPARTATE AMINO TRANSFERASE 23 U/L (15-37); BILIRUBIN,TOTAL 0.2 MG/DL (0.2-1.0)
--- NOTE | 2019-12-12 18:50 | NUR ---
ED Nurse Note: Patient requesting to go back to SNF stating she does not want treatment, Dr. Ferreira at bedside speaking with the patient.
--- NOTE | 2019-12-12 19:13 | NUR ---
ED Nurse Note: Handoff report given to Lizzette BLANK
--- NOTE | 2019-12-12 19:15 | NUR ---
ED Nurse Note: Report received from ABHAY Orosco. Pt is in no acute distress, awake and alert. Awaiting on transport back to facility at this time. Will continue to monitor.
--- NOTE | 2019-12-12 19:39 | Emergency Room Report ---
History of Present Illness General Chief Complaint: Abdominal Pain Source: Medical Record Present Illness HPI 74-year-old female presents ED for evaluation. Brought in by EMS from [facility]. Pointing to the of epigastric pain which started today. Sharp, 7 out of 10, nonradiating. Denies shortness of breath. Denies nausea or vomiting. Denies fevers or chills. Denies chest pain. No other aggravating relieving factors. Denies any other associated symptoms Allergies: Coded Allergies: No Known Allergies (Unverified , 12/14/18) Patient History Past Medical History: DM, HTN, AFib, GERD, CVA/TIA Past Surgical History: pacemaker Pertinent Family History: none Social History: Denies: smoking, alcohol use, drug use Now: No Immunizations: UTD Reviewed Nursing Documentation: PMH: Agreed; PSxH: Agreed Nursing Documentation-PMH Past Medical History: No History, Except For Hx Cardiac Problems: Yes - a-fib Hx Hypertension: Yes Hx Pacemaker: Yes - Right Chest Hx Diabetes: Yes Hx Cancer: No Hx Gastrointestinal Problems: Yes Hx Neurological Problems: Yes Hx Cerebrovascular Accident: Yes - hemiplegia affecting right nondom side Review of Systems All Other Systems: negative except mentioned in HPI Physical Exam Vital Signs Date Time Temp Pulse Resp B/P (MAP) Pulse Ox O2 Delivery O2 Flow Rate FiO2 12/12/19 16:51 98.1 69 16 184/86 (118) 95 Room Air Sp02 EP Interpretation: reviewed, normal General Appearance: no apparent distress, alert, GCS 15, non-toxic Head: normocephalic, atraumatic Eyes: bilateral eye normal inspection, bilateral eye PERRL ENT: hearing grossly normal, normal pharynx, no angioedema, normal voice Neck: full range of motion, supple/symm/no masses Respiratory: chest non-tender, lungs clear, normal breath sounds, speaking full sentences Cardiovascular #1: regular rate, rhythm, no edema Cardiovascular #2: 2+ carotid (R), 2+ carotid (L), 2+ radial (R), 2+ radial (L) , 2+ dorsalis pedis (R), 2+ dorsalis pedis (L) Gastrointestinal: normal bowel sounds, soft, non-distended, no guarding, no rebound, tenderness - epigastric Rectal: deferred Genitourinary: normal inspection, no CVA tenderness Musculoskeletal: back normal, normal range of motion, gait/station normal, non- tender Neurologic: alert, motor strength/tone normal, oriented x3, sensory intact, responsive, speech normal Psychiatric: judgement/insight normal, memory normal, mood/affect normal, no suicidal/homicidal ideation Reflexes: 3+ bicep (R), 3+ bicep (L), 3+ tricep (R), 3+ tricep (L), 3+ knee (R) , 3+ knee (L) Skin: no rash Lymphatic: no adenopathy Medical Decision Making Diagnostic Impression: Primary Impression: Epigastric pain ER Course Hospital Course 74-year-old F presents to ED with epigastric pain differential diagnosis: gastritis, SBO, cholecystits Clinical course Patient placed on stretcher. On surveillance system monitor. After initial history and physical I ordered labs, IV fluids, meds, EKG Labs - no leukocytosis, no electrolyte abnormalities, LFTs normal, trop negative EKG - NSR, no acute ischemic changes interpreted by me I discussed option of CT with the patient which she declined. I discussed option for admission with observation and patient declined. States she wants to go back to the facility. Vital stable. Labs unremarkable. I feel this is a highly complex case requiring extensive working including EKG/ Rhythm strip, Xray/CT/US, Blood/urine lab work, repeat exams while in ED, and administration of strong opiates/narcotics for pain control, admission to hospital or close patient follow up. Diagnosis - epigastric pain Stable and discharged to SNF. Followup with PMD. Return to ED if symptoms recur or worsen Labs Test 12/12/19 17:25 12/12/19 17:40 Urine Color Pale yellow Urine Appearance Clear Urine pH 7 (4.5-8.0) Urine Specific Allred 1.010 (1.005-1.035) Urine Protein Negative (NEGATIVE) Urine Glucose (UA) Negative (NEGATIVE) Urine Ketones Negative (NEGATIVE) Urine Blood Negative (NEGATIVE) Urine Nitrite Negative (NEGATIVE) Urine Bilirubin Negative (NEGATIVE) Urine Urobilinogen Normal MG/DL (0.0-1.0) Urine Leukocyte Esterase Negative (NEGATIVE) White Blood Count 10.9 K/UL (4.8-10.8) Red Blood Count 4.53 M/UL (4.20-5.40) Hemoglobin 12.6 G/DL (12.0-16.0) Hematocrit 40.0 % (37.0-47.0) Mean Corpuscular Volume 88 FL (80-99) Mean Corpuscular Hemoglobin 27.9 PG (27.0-31.0) Mean Corpuscular Hemoglobin Concent 31.6 G/DL (32.0-36.0) Red Cell Distribution Width 13.8 % (11.6-14.8) Platelet Count 247 K/UL (150-450) Mean Platelet Volume 9.1 FL (6.5-10.1) Neutrophils (%) (Auto) 53.6 % (45.0-75.0) Lymphocytes (%) (Auto) 37.2 % (20.0-45.0) Monocytes (%) (Auto) 5.4 % (1.0-10.0) Eosinophils (%) (Auto) 2.7 % (0.0-3.0) Basophils (%) (Auto) 1.0 % (0.0-2.0) Sodium Level 139 MMOL/L (136-145) Potassium Level 4.8 MMOL/L (3.5-5.1) Chloride Level 102 MMOL/L (98-107) Carbon Dioxide Level 25 MMOL/L (21-32) Anion Gap 12 mmol/L (5-15) Blood Urea Nitrogen 20 mg/dL (7-18) Creatinine 1.2 MG/DL (0.55-1.30) Estimat Glomerular Filtration Rate 53.0 mL/min (>60) Glucose Level 320 MG/DL (74-106) Calcium Level 8.4 MG/DL (8.5-10.1) Total Bilirubin 0.2 MG/DL (0.2-1.0) Aspartate Amino Transf (AST/SGOT) 23 U/L (15-37) Alanine Aminotransferase (ALT/SGPT) 33 U/L (12-78) Alkaline Phosphatase 207 U/L (46-116) Troponin I 0.001 ng/mL (0.000-0.056) Total Protein 7.3 G/DL (6.4-8.2) Albumin 2.7 G/DL (3.4-5.0) Globulin 4.6 g/dL Albumin/Globulin Ratio 0.6 (1.0-2.7) Lipase 352 U/L (73-393) EKG Diagnostic Results Rate: normal Rhythm: NSR ST Segments: no acute changes ASA given to the pt in ED: No Rhythm Strip Diag. Results EP Interpretation: yes Rhythm: NSR, no PVC's, no ectopy Chest X-Ray Diagnostic Results Chest X-Ray Diagnostic Results : Chest X-Ray Ordered: Yes # of Views/Limited/Complete: 1 View Indication: Chest Pain EP Interpretation: Yes Interpretation: no consolidation, no effusion, no pneumothorax, no acute cardiopulmonary disease, other - pacemaker Impression: No acute disease Electronically Signed by: Electronically signed by Marshal Ferreira MD Last Vital Signs Date Time Temp Pulse Resp B/P (MAP) Pulse Ox O2 Delivery O2 Flow Rate FiO2 12/12/19 17:17 69 16 Room Air 12/12/19 17:17 98.1 164/81 95 Status: improved Disposition: XFER SNF Condition: Stable Marshal Ferreira MD Dec 12, 2019 19:39
[2019-12-12] MEDS ORDERED: RANITIDINE HCL150 MG ORAL (19:57)
[2019-12-12 20:45] VITALS: BP 120/94
--- NOTE | 2019-12-12 20:45 | NUR ---
ER DISCHARGE NOTE: Patient is cleared to be discharged per ERMD and taken back to facility, pt is aox4, on room air, with stable vital signs. EMS crew was given dc and prescription instructions. Pt being transported by [facility] unit [id number] via gurney. Pt id band and iv site removed without complications. Pt took all belongings.
--- NOTE | 2019-12-13 10:48 | Diagnostic Imaging Report ---
. Indication: Shortness of breath Technique: One view of the chest Comparison: none Findings: There is mild elevation of the left hemidiaphragm. There is a right chest pacemaker. The heart size is normal. Impression: Elevated left hemidiaphragm. No acute process
== END 2019-12-12 20:45 ==
LOC: EDBD 16:50 → EMR 19:15
DX: R10.13 Epigastric pain (principal); K21.9 Gastro-esophageal reflux disease without esophagitis; E11.9 Type 2 diabetes mellitus without complications; I10 Essential (primary) hypertension; Z86.73 Personal history of transient ischemic attack (TIA), and cerebral infarction without residual deficits; G81.91 Hemiplegia, unspecified affecting right dominant side; Z95.0 Presence of cardiac pacemaker
CPT/HCPCS: 36415; 71045; 80053; 81003; 83690; 84484; 85025; 93005; 99283